=== PATIENT | male | born 1950 | race Caucasian/White ===

== ENCOUNTER → 2017-04-01 | Outpatient (CLI) | payer OTHER ==
[~2017-04-01] MED LIST: AMLO5 PO; ASPI81CH PO; ATOR80 PO; Afrin15 ML; Dazidox10 MG; FLUO10 PO; GABA100 PO; HYDCHL25 PO; INS70/30I INJ; INSULANPEN INJ; LISI5 PO; LO-DOSE ASPIRIN81 MG PO; METF500 PO; METF850 PO; Multivitamin1 EAC1 PO; NASACORT10.8 ML; Novolog100 UNIT/2; OXYC15ER PO; VITAMIN D32000 UNIT PO; ZESTRIL40 MG PO
== END | disposition home or self-care (01) ==
LOC: LAB EV 12:21
DX: H60.92 Unspecified otitis externa, left ear (principal)
CPT/HCPCS: 87070; 87106; 87205

== ENCOUNTER → 2017-05-12 | Outpatient (CLI) | payer OTHER | END | disposition home or self-care (01) | LOC: PLD 07:47 | DX: H93.8X9 Other specified disorders of ear, unspecified ear (principal); H60.8X2 Other otitis externa, left ear | CPT/HCPCS: 88305; 88312 ==

== ENCOUNTER → 2017-06-01 | Outpatient (CLI) | payer OTHER ==
[~2017-06-01] MED LIST changes: -Afrin15 ML; -LISI5 PO; -LO-DOSE ASPIRIN81 MG PO; -METF850 PO; -Multivitamin1 EAC1 PO; -Novolog100 UNIT/2; -OXYC15ER PO; -VITAMIN D32000 UNIT PO
[2017-06-01 11:51] LABS: Source, Urine Clean Catch
[2017-06-01 13:06] LABS: Appearance, Urine Clear (Clear); Bilirubin, Urine Neg (Neg); Blood, Urine 1+ (Neg); Color, Urine Yellow (P-Yellow); Glucose Qualitative, Urine 2+ (Neg); Ketones, Urine Neg (Neg); Leukocyte Esterase, Urine Neg (Neg); Nitrite, Urine Neg (Neg); Protein, Urine 3+ (Neg); Specific Gravity, Urine 1.015 (1.003-1.022); Urobilinogen, Urine NORM (Normal)
[2017-06-01 13:21] LABS: Bacteria Not Seen /hpf; White Blood Cells, Urine Not Seen /hpf (0-5)
[2017-06-01 13:22] LABS: Red Blood Cells, Urine 0-2 /hpf (0-2)
[2017-06-01 13:23] LABS: Squamous Epithelial Cells Not Seen /hpf (Few)
[2017-06-01 13:34] LABS: Creatinine, Urine Random 73.8 mg/dL (27.00-270.00); Protein, Urine Random 110.7 mg/dL (0.0-11.9)
== END ==
LOC: OLS 11:47 → LAB SHORT 11:47
PROVIDERS: Internal Medicine
DX: N18.2 Chronic kidney disease, stage 2 (mild) (principal); R80.9 Proteinuria, unspecified
CPT/HCPCS: 81001; 82570; 84156

== ENCOUNTER → 2017-06-08 | Outpatient (CLI) | payer OTHER | END | disposition home or self-care (01) | LOC: LAB 10:58 → LAB SHORT 10:58 | PROVIDERS: Internal Medicine | DX: R80.9 Proteinuria, unspecified (principal) | CPT/HCPCS: 81050; 84156 ==

== ENCOUNTER 2017-10-26 02:16 | Day surgery (SDC) | payer OTHER ==
[~2017-10-26] VITALS: Ht 172.7 cm; Wt 106.0 kg
[~2017-10-26 02:16] MED LIST changes: +Afrin15 ML; +LISI5 PO; +LO-DOSE ASPIRIN81 MG PO; +METF850 PO; +Multivitamin1 EAC1 PO; +Novolog100 UNIT/2; +OXYC15ER PO; +VITAMIN D32000 UNIT PO
== END 2017-10-26 22:40 | disposition home or self-care (01) ==
LOC: MHTC 02:16
PROC: 3E033TZ Introduction of Destructive Agent into Peripheral Vein, Percutaneous Approach (ICD-10-PCS; principal; 2017-10-26)
PROC: 065Q3ZZ Destruction of Left Saphenous Vein, Percutaneous Approach (ICD-10-PCS; principal; 2017-10-26)
PROC: 065P3ZZ Destruction of Right Saphenous Vein, Percutaneous Approach (ICD-10-PCS; principal; 2017-10-26)
DX: I87.2 Venous insufficiency (chronic) (peripheral) (principal); I83.813 Varicose veins of bilateral lower extremities with pain; E11.22 Type 2 diabetes mellitus with diabetic chronic kidney disease; I13.0 Hypertensive heart and chronic kidney disease with heart failure and stage 1 through stage 4 chronic kidney disease, or unspecified chronic kidney disease; I44.0 Atrioventricular block, first degree; G47.33 Obstructive sleep apnea (adult) (pediatric); N18.9 Chronic kidney disease, unspecified; I50.30 Unspecified diastolic (congestive) heart failure; E78.5 Hyperlipidemia, unspecified; R79.89 Other specified abnormal findings of blood chemistry; E11.41 Type 2 diabetes mellitus with diabetic mononeuropathy; G57.92 Unspecified mononeuropathy of left lower limb; E11.65 Type 2 diabetes mellitus with hyperglycemia; E66.01 Morbid (severe) obesity due to excess calories; Z79.899 Other long term (current) drug therapy; Z79.4 Long term (current) use of insulin; Z68.36 Body mass index [BMI] 36.0-36.9, adult
CPT/HCPCS: 36465; 36475; 99152; 99153; C1888; C1894; J1644; J2250; J3010; J7030; J7040